=== PATIENT | male | born 1955 | race Caucasian/White ===

== ENCOUNTER 2018-02-08 05:16 | Observation (INO) | payer OTHER ==
[~2018-02-08] VITALS: Ht 182.9 cm; Wt 99.8 kg
[~2018-02-08 05:16] MED LIST: ASPIR 8181 MG PO; ATORVASTATIN CA20 MG PO; B COMPLEX1 EACH PO; COUMADIN5 MG PO; DIGOXIN125 MCG PO; FISH OIL PO; LOVENOX60 MG/0.6 SC; ZEBETA10 MG PO
[2018-02-08] MEDS ORDERED: KETOROLAC TROMETHAMINE 30 MG/ML VIAL IV STA (05:44)
[2018-02-08] MEDS ORDERED: ONDANSETRON HCL INJ 2 MG/ML VIAL IV STA (05:44)
[2018-02-08] MEDS ORDERED: HYDROCODONE/APAP 10MG-325MG TAB PO ONE (05:45)
[2018-02-08 06:03] LABS: BASOPHILS # (AUTO) 0.1 (0.0-0.1); BASOPHILS % 0.7 % (0.0-1.0); EOSINOPHILS # (AUTO) 0.3 (0.0-0.4); EOSINOPHILS % 3.4 % (0.0-6.0); HEMATOCRIT 42.9 % (38.2-49.6); HEMOGLOBIN 14.6 g/dL (14.0-18.0); LYMPHOCYTES # (AUTO) 1.8 (1.0-3.2); LYMPHOCYTES % 18.3 % (18.0-39.1); MEAN CORPUSCULAR VOLUME 91.1 fL (81-99); MONOCYTES # (AUTO) 0.9 (0.2-0.8); MONOCYTES % 9.7 % (4.4-11.3); NEUTROPHILS # (AUTO) 6.5 (2.1-6.9); NEUTROPHILS % 67.3 % (38.7-80.0); PLATELET COUNT 523 x10e3/uL (140-360); RED BLOOD COUNT 4.71 x10e6/uL (4.3-5.7); RED CELL DISTRIBUTION WIDTH 15.2 % (11.7-14.4)
[2018-02-08 06:12] LABS: INR 2.27; PROTHROMBIN TIME 23.5 seconds (11.9-14.5)
[2018-02-08 06:13] LABS: PARTIAL THROMBOPLASTIN TIME 43.5 seconds (23.8-35.5)
[2018-02-08 06:16] LABS: ALANINE AMINOTRANSFERASE 34 IU/L (0-55); ALKALINE PHOSPHATASE 131 IU/L (40-150); ANION GAP 12.9 mmol/L (8-16); BLOOD UREA NITROGEN 21 mg/dL (7-26); BUN/CREATININE RATIO 23 (6-25); CALCIUM 9.5 mg/dL (8.4-10.2); CARBON DIOXIDE 30 mmol/L (22-29); CHLORIDE 102 mmol/L (98-107); CREATINE KINASE 447 IU/L (30-200); CREATININE, SERUM 0.93 mg/dL (0.72-1.25); EST GLOMERULAR FILTRATION RATE > 60 ML/MIN (60-); GLUCOSE 109 mg/dL (74-118); POTASSIUM 4.9 mmol/L (3.5-5.1); SODIUM 140 mmol/L (136-145)
--- NOTE | 2018-02-08 06:37 | Diagnostic Imaging Report ---
SHOULDER RIGHT COMPLETE HISTORY: Right shoulder pain COMPARISON: None FINDINGS: Bones: No displaced fracture. Osseous alignment is within normal limits. Joints: The joint spaces are well-maintained. Soft tissues: The soft tissues appear unremarkable. IMPRESSION: No acute radiographic abnormality. Signed by: Dr. Christian Wall M.D. on 02/08/2018 6:33 AM
--- NOTE | 2018-02-08 06:38 | Diagnostic Imaging Report ---
EXAMINATION: CHEST 2 VIEWS INDICATION: Chest pain in right shoulder and neck pain. COMPARISON: 05/16/2010 FINDINGS: TUBES and LINES: AICD is intact. LUNGS: Lungs are well inflated. Lungs are clear. There is no evidence of pneumonia or pulmonary edema. PLEURA: No pleural effusion or pneumothorax. HEART AND MEDIASTINUM: Cardiac size is moderately enlarged. BONES AND SOFT TISSUES: No acute osseous lesion. Soft tissues are unremarkable. UPPER ABDOMEN: No free air under the diaphragm. IMPRESSION: No acute thoracic abnormality. Signed by: Dr. Christian Wall M.D. on 02/08/2018 6:34 AM
--- OUTSIDE RECORDS SUMMARY | 2018-02-08 08:10 | XMS REPORT ---
Author Author [facility] Address Unknown Phone Unavailable Care Team Providers Care Pickle Processor Name Role Phone ANSELMO CHAMPION Unavailable Unavailable Problems This patient has no known problems. Allergies, Adverse Reactions, Alerts This patient has no known allergies or adverse reactions. Medications This patient has no known medications. Results Test Description Test Time Test Comments Text Results Atomic Results Result Comments SHOULDER RIGHT COMPLETE [place] [address] Patient Name: SHANTANU BENITEZ MR #: [id number] : 1955 Age/Sex: 62/M Req #: [id number] Adm Physician: Ordered by: ANSELMO CHAMPION MD Report #: [id number] Location: ER Room/Bed: Procedure: [id number] DX/SHOULDER RIGHT COMPLETE Exam Date: 02/08/18 Exam Time: 0610 REPORT STATUS: Signed SHOULDER RIGHT COMPLETE HISTORY: Right shoulder pain COMPARISON: None FINDINGS: Bones: No displaced fracture. Osseous alignment is within normal limits. Joints: The joint spaces are well-maintained. Soft tissues: The soft tissues appear unremarkable. IMPRESSION: No acute radiographic abnormality. Signed by: Dr. Christian Wall M.D. on 2017 6:33 AM Dictated By: CHRISTIAN TORRES MD 2 Transcribed By: FLASH on 632 COPY TO: ANSELMO CHAMPION MD CHEST 2 VIEWS [place] [address] Patient Name: SHANTANU BENITEZ MR #: [id number] : 1955 Age/Sex: 62/M Req #: [id number] Adm Physician: Ordered by: ANSELMO CHAMPION MD Report #: [id number] Location: ER Room/Bed: Procedure: [id number] DX/CHEST 2 VIEWS Exam Date: 02/08/18 Exam Time: 0610 REPORT STATUS: Signed EXAMINATION: CHEST 2 VIEWS INDICATION: Chest pain in right shoulder and neck pain. COMPARISON: 05/16/2010 FINDINGS: TUBES and LINES: AICD is intact. LUNGS: Lungs are well inflated. Lungs are clear. There is no evidence of pneumonia or pulmonary edema. PLEURA: No pleural effusion or pneumothorax. HEART AND MEDIASTINUM: Cardiac size is moderately enlarged. BONES AND SOFT TISSUES: No acute osseous lesion. Soft tissues are unremarkable. UPPER ABDOMEN: No free air under the diaphragm. IMPRESSION: No acute thoracic abnormality. Signed by: Dr. Christian Wall M.D. on 02/08/2018 6:34 AM Dictated By: CHRISTIAN TORRES MD 3 Transcribed By: FLASH on 02/08/18633 COPY TO: ANSELMO CHAMPION MD
[2018-02-08] MEDS ORDERED: HYDROCODONE/APAP 10MG-325MG TAB PO PRN (08:15)
[2018-02-08] MEDS ORDERED: ONDANSETRON HCL INJ 2 MG/ML VIAL IV PRN (08:15)
[2018-02-08] MEDS ORDERED: BISOPROLOL FUMAR5 MG PO (09:58)
[2018-02-08] MEDS ORDERED: MULTI-VITAMIN1 EACH PO (09:58)
[2018-02-08] MEDS ORDERED: LEVOTHYROXINE50 MCG PO (09:58)
[2018-02-08] MEDS ORDERED: LASIX20 MG PO (10:04)
--- NOTE | 2018-02-08 10:33 | Diagnostic Imaging Report ---
PROCEDURE: C-SPINE COMPLETE COMPARISON: None. INDICATIONS: RIGHT SHOULDER PAIN THAT TRAVELS DOWN RIGHT ARM FINDINGS: C1 through C7 are visualized on the lateral view. The spine is in anatomic alignment without evidence of fracture or subluxation. Vertebral body heights and disc spaces are maintained. Mild degenerative spurring of C5 with bilateral foraminal encroachment at C4-C5. The prevertebral soft tissues are normal. CONCLUSION: Degenerative changes of the spine as described above. Dre Dowling D.O. Dictated by: Dre Dowling D.O. on 02/08/2018 at 10:33 Electronically approved by: Dre Dowling D.O. on 02/08/2018 at 10:33
[2018-02-08 15:39] LABS: CREATINE KINASE 332 IU/L (30-200)
[2018-02-08 19:56] LABS: CREATINE KINASE 315 IU/L (30-200)
[2018-02-08 20:43] VITALS: BP 133/95
--- NOTE | 2018-02-08 21:17 | History and Physical ---
REASON FOR ADMISSION: Elevated cardiac enzymes. HISTORY OF PRESENT ILLNESS: This is a 62-year-old man with nonischemic systolic heart failure status post BiV ICD, hypertension, atrial fibrillation, mild coronary artery disease on cardiac catheterization, hypertension, right thyroid lobectomy, hyperlipidemia, and rheumatoid arthritis who presented with complaints of bilateral shoulder pain, right worse than left. He reports this pain began Wednesday with radiation down his arms. The pain progressed and worsened such that he presented to the ER this morning for further evaluation. The pain was associated with shortness of breath, but he denied any chest pain, palpitations, orthopnea, PND, lightheadedness or syncope. He reports the pain was improved after he was given Toradol and hydrocodone. In addition, he notes he has had leg weakness since prior back surgery, but he has noted knee and foot pain recently. REVIEW OF SYSTEMS: Negative except as per HPI. PAST MEDICAL HISTORY 1. Nonischemic cardiomyopathy, status post BiV ICD. 2. Atrial fibrillation. 3. Mild coronary artery disease on cardiac catheterization in March 2017. 4. Hypertension. 5. Hyperlipidemia. 6. Rheumatoid arthritis. PAST SURGICAL HISTORY 1. Spinal fusion. 2. Neck and back surgery. 3. Right knee arthroscopy. 4. Right thyroid lobectomy. SOCIAL HISTORY: Pertinent for tobacco use. No alcohol or drugs. FAMILY HISTORY: Noncontributory. ALLERGIES: PLEASE SEE MAR. MEDICATIONS: Please see medication list. PHYSICAL EXAMINATION VITAL SIGNS: Temperature 98.2 degrees, pulse 71, respiratory rate 16, blood pressure 123/99, oxygen saturation 98%. GENERAL: A well-developed, well-nourished man, no acute distress. HEENT: Normocephalic, atraumatic. Pupils equal. No scleral icterus. NECK: Supple. No thyromegaly or cervical lymphadenopathy. No carotid bruits. LUNGS: Clear to auscultation bilaterally. No wheezes or crackles. CARDIOVASCULAR: Normal rate, regular rhythm. A 2/6 systolic murmur at the left sternal border. Normal S1, S2. ABDOMEN: Soft, nontender. EXTREMITIES: No edema. NEURO: Nonfocal exam. LABS: WBC 9.7, hemoglobin 14.6, hematocrit 42.9, platelets 523,000. Sodium 140, potassium 4.9, chloride 102, CO2 30. BUN 21, creatinine 0.93. CK is 447. CK-MB is 7. Troponin I is less than 0.001. INR 2.27. EKG: Demand pacing. Chest x-ray: No acute thoracic abnormality. IMPRESSION 1. Elevated CK and CK-MB with negative troponins. 2. Shoulder pain. 3. Nonischemic cardiomyopathy, status post biventricular implantable cardioverter-defibrillator. 4. Mild coronary artery disease. 5. Atrial fibrillation, on therapeutic anticoagulation. 6. Hypertension. 7. Hyperlipidemia. 8. Rheumatoid arthritis. RECOMMENDATIONS: The patient's presentation is not consistent with myocardial infarction. Elevated CK and CK-MB are likely from alternate sources rather than the myocardium. No further cardiac evaluation is indicated at this time. Patient is advised to follow up with his outpatient primary care provider for further evaluation. Job#: [id number] SYLVIE
--- NOTE | 2018-02-15 18:33 | Discharge Summary ---
REASON FOR ADMISSION: Elevated cardiac enzymes. DISCHARGE DIAGNOSIS: Elevated CK and CK MB. HISTORY OF PRESENT ILLNESS: This is a 62-year-old male with history of nonischemic systolic heart failure, status post biventricular ICD, hypertension, atrial fibrillation and mild coronary artery disease, hyperlipidemia, right thyroid lobectomy and rheumatoid arthritis who presented with complaints of bilateral shoulder pain. He was found to have elevated CK and CK MB and admitted for observation. Cardiac enzymes were trended without evidence of myocardial infarction on serial troponin. He was, therefore, discharged home in stable condition to follow up with his primary care physician for further evaluation. MEDICATIONS: Please see EMR. DISCHARGE ACTIVITY: As tolerated. FOLLOWUP INSTRUCTIONS: Follow up with primary care physician and Dr. Muñoz. FLORIAN PALOMARES MD Job#: [id number] GH MTDD
== END 2018-02-08 22:03 | disposition home or self-care (01) ==
LOC: ER 05:16 → ERHOLD 08:08 → IMCU 18:24
PROVIDERS: ADMIT Internal Medicine Interventional Cardiology; ATTEND Internal Medicine Interventional Cardiology
DX: R94.39 Abnormal result of other cardiovascular function study (principal); M25.512 Pain in left shoulder; M25.511 Pain in right shoulder; I42.8 Other cardiomyopathies; I25.10 Atherosclerotic heart disease of native coronary artery without angina pectoris; Z95.810 Presence of automatic (implantable) cardiac defibrillator; I48.91 Unspecified atrial fibrillation; Z79.01 Long term (current) use of anticoagulants; E78.5 Hyperlipidemia, unspecified; M06.9 Rheumatoid arthritis, unspecified
CPT/HCPCS: 36415; 71046; 72050; 73030; 80053; 82550; 82553; 83735; 84484; 85025; 85610; 85730; 93005; 99284; G0378; J1885; J2405

== ENCOUNTER → 2020-07-26 | Outpatient (CLI) | payer MEDICARE, OTHER ==
[~2020-07-26] MED LIST changes: +BISOPROLOL FUMAR5 MG PO; +LASIX20 MG PO; +LEVOTHYROXINE50 MCG PO; +MULTI-VITAMIN1 EACH PO
== END ==
LOC: RAD 09:37
PROVIDERS: ATTEND Internal Medicine
DX: R60.9 Edema, unspecified (principal); M79.89 Other specified soft tissue disorders
CPT/HCPCS: 93971

== ENCOUNTER → 2021-06-11 | Day surgery (SDC) | payer MEDICARE, OTHER ==
[2021-06-06 10:11] LABS: BASOPHILS # (AUTO) 0.1 (0.0-0.1); BASOPHILS % 0.9 % (0.0-1.0); EOSINOPHILS # (AUTO) 0.4 (0.0-0.4); EOSINOPHILS % 3.5 % (0.0-6.0); HEMATOCRIT 42.9 % (38.2-49.6); HEMOGLOBIN 14.1 g/dL (14.0-18.0); LYMPHOCYTES # (AUTO) 1.4 (1.0-3.2); LYMPHOCYTES % 14.2 % (18.0-39.1); MEAN CORPUSCULAR HEMOGLOBIN 31.2 pg (28-32); MEAN CORPUSCULAR HGB CONC 32.9 g/dL (31-35); MEAN CORPUSCULAR VOLUME 94.9 fL (81-99); MONOCYTES % 9.6 % (4.4-11.3); NEUTROPHILS % 71.2 % (38.7-80.0); PLATELET COUNT 539 x10e3/uL (140-360); RED BLOOD COUNT 4.52 x10e6/uL (4.3-5.7); RED CELL DISTRIBUTION WIDTH 16.7 % (11.7-14.4)
[2021-06-06 10:30] LABS: INR 1.88; PROTHROMBIN TIME 21.9 seconds (11.9-14.5)
[2021-06-06 10:32] LABS: PARTIAL THROMBOPLASTIN TIME 35.6 seconds (23.8-35.5)
[2021-06-06 10:43] LABS: ALBUMIN 3.8 g/dL (3.5-5.0); ANION GAP 11.4 mmol/L (8-16); CALCIUM 9.2 mg/dL (8.4-10.2); CHOL/HDL RATIO 4.7 (3.9-4.7); CREATININE, SERUM 1.13 mg/dL (0.72-1.25)
[2021-06-06 10:52] LABS: POTASSIUM 5.4 mmol/L (3.5-5.1)
[2021-06-11] VITALS (11 sets, daily range): BP systolic 136–166; BP diastolic 60–105
[~2021-06-11] VITALS: Ht 182.9 cm; Wt 102.1 kg
[~2021-06-11] MED LIST changes: +ASPIRIN 325 MG TAB ONE; +CLOPIDOGREL BISULFATE 75 MG TAB ONE; +DIPHENHYDRAMINE HCL INJ 50 MG/ML VIAL ONE; +FENTANYL CITRATE/PF 100MCG/2 ML INJ ONE; +FISH OIL 1,0001 EAC2 PO; +FOLIC ACID0.4 MG PO; +HEPARIN SOD (PORCINE) 1000 UNIT/ML 30ML ONE; +HEPARIN SOD/SOD CHLORIDE 2,000 ML ONE; +IOPAMIDOL 370 MG/ML 200 ML INFUS..BTL INJ ONE; +LEVOTHYROXINE75 MCG PO; +LIDOCAINE HCL 2% LOCAL 20 ML VIAL ONE; +METHOTREXATE2.5 MG PO; +METHYLPREDNISOLONE SOD SUCC 125 MG/2ML VIAL ONE; +METOPROLOL SUCC50 MG PO; +MIDAZOLAM HCL 2 MG/2 ML VIAL ONE; +MOBIC15 MG PO; +NITROGLYCERIN/D5W 200 MCG/ML 250 ML ONE; +SODIUM BICARBO650 MG PO; +SODIUM CHLORIDE 0.9% 1000ML 1,000 ML ONE; +VERAPAMIL HCL 2.5 MG/ML 2 ML VIAL ONE; +WARFARIN SODIUM3 MG PO
== END | disposition home or self-care (01) ==
LOC: CATH LAB 07:30
PROVIDERS: ATTEND Internal Medicine Cardiovascular Disease
DX: I25.10 Atherosclerotic heart disease of native coronary artery without angina pectoris (principal); I11.0 Hypertensive heart disease with heart failure; I50.22 Chronic systolic (congestive) heart failure; E78.5 Hyperlipidemia, unspecified; I48.91 Unspecified atrial fibrillation; R94.39 Abnormal result of other cardiovascular function study; Z01.812 Encounter for preprocedural laboratory examination; Z20.822 Contact with and (suspected) exposure to COVID-19
CPT/HCPCS: 93458; C9600; 36415; 76937; 80053; 80061; 85025; 85610; 85730; 92928; 99152; 99153; C1874; C1887; J1200; J1644; J2001; J2250; J2930; J3010; J7030; Q9967; U0002

== ENCOUNTER → 2025-07-04 | Day surgery (SDC) | payer MEDICARE, OTHER ==
[2025-06-28 09:27] LABS: BASOPHILS % 0.8 % (0.0-1.0); EOSINOPHILS % 4.4 % (0.0-6.0); LYMPHOCYTES % 13.3 % (18.0-39.1); MONOCYTES % 9.1 % (4.4-11.3); NEUTROPHILS % 71.8 % (38.7-80.0); RED CELL DISTRIBUTION WIDTH 15.6 % (11.7-14.4)
[2025-06-28 09:52] LABS: EST GLOMERULAR FILTRATION RATE 60.0 ML/MIN (>=60)
[~2025-07-04] MED LIST changes: +ACETAMINOPHEN 1000 MG/100 ML 100 ML IV ONE; -ASPIRIN 325 MG TAB ONE; -CLOPIDOGREL BISULFATE 75 MG TAB ONE; +CLOPIDOGREL75 MG PO; +DEXAMETHASONE SOD PHOS INJ 4 MG/ML SDV ONE; -DIPHENHYDRAMINE HCL INJ 50 MG/ML VIAL ONE; +ERGOCALCIF200 MCG/1 PO; +FAMOTIDINE20 MG PO; -HEPARIN SOD (PORCINE) 1000 UNIT/ML 30ML ONE; -HEPARIN SOD/SOD CHLORIDE 2,000 ML ONE; -IOPAMIDOL 370 MG/ML 200 ML INFUS..BTL INJ ONE; -LIDOCAINE HCL 2% LOCAL 20 ML VIAL ONE; +LIDOCAINE HCL 2% LOCAL INJ 5 ML SDV VIAL INJ ONE; -METHYLPREDNISOLONE SOD SUCC 125 MG/2ML VIAL ONE; -MIDAZOLAM HCL 2 MG/2 ML VIAL ONE; -NITROGLYCERIN/D5W 200 MCG/ML 250 ML ONE; +PROPOFOL IV EMULSION 10 MG/ML 20 ML VIAL ONE; +ROCURONIUM BROMIDE 1 ML IV ONE; +SEVOFLURANE INHAL SOLN 250 ML PEN BTL ONE; +SODIUM CHLORIDE 0.9% 100 ML ONE; -SODIUM CHLORIDE 0.9% 1000ML 1,000 ML ONE; +SUGAMMADEX SODIUM 200 MG/2 ML VIAL IV ONE; +TOPROL XL100 MG PO; +TRICOR145 MG PO; -VERAPAMIL HCL 2.5 MG/ML 2 ML VIAL ONE
[2025-07-04] MEDS: LACTATED RINGER'S 1,000 ML ONE (10:02)
[2025-07-04 10:43] LABS: INR 1.06
[2025-07-04 14:33] VITALS: TEMP 97.6
[2025-07-04 18:00] VITALS: BP 124/77; PULSE 71; RESP 18; O2SAT 97
== END | disposition home or self-care (01) ==
LOC: OR 09:09
PROVIDERS: ATTEND Surgery
DX: K40.90 Unilateral inguinal hernia, without obstruction or gangrene, not specified as recurrent (principal); I25.10 Atherosclerotic heart disease of native coronary artery without angina pectoris; I10 Essential (primary) hypertension; E78.5 Hyperlipidemia, unspecified; I25.2 Old myocardial infarction; I49.9 Cardiac arrhythmia, unspecified; M54.2 Cervicalgia; M54.9 Dorsalgia, unspecified; E03.9 Hypothyroidism, unspecified; M06.9 Rheumatoid arthritis, unspecified; Z91.013 Allergy to seafood; Z01.810 Encounter for preprocedural cardiovascular examination; Z01.812 Encounter for preprocedural laboratory examination; Z01.818 Encounter for other preprocedural examination; Z79.02 Long term (current) use of antithrombotics/antiplatelets; Z79.82 Long term (current) use of aspirin; Z79.01 Long term (current) use of anticoagulants; Z79.899 Other long term (current) drug therapy; Z95.5 Presence of coronary angioplasty implant and graft; Z95.0 Presence of cardiac pacemaker; Z87.891 Personal history of nicotine dependence
CPT/HCPCS: 36415 ×2; 49505; 71046; 80048; 85025; 85610; 85730; 93005; C1781; J0131; J1100; J2003; J2704; J3010; J7050; J7121